=== PATIENT | female | born 1945 | race African-American/Black ===

== ENCOUNTER 2017-04-10 03:51 | Emergency (ER) | payer MEDICARE, OTHER ==
--- NOTE | ~2017-04-10 | CT4 ---
[facility] A Service of [facility] RADIOLOGY TEXT RESULTS PATIENT: MYRA AMIN LOCATION: [facility] : 49 UNIT #: [id number] AGE: [address]: Aliya Bueno MD SEX: F ORDER DR: [id number] [place], [place] [address] [id number] MR#: [id number] Acc #: [id number] NAME: MYRA AMIN : 1945 SEX: F STUDY DATE/TIME: 04/10/2017 4:33 UNIT: DIANDRA ROOM: STUDY DESCRIPTION: CT Abd and Pelv Wo Cont Attending Physician: Aliya Bueno M.D. Ordering Physician: Aliya Bueno M.D. Primary Care Physician: No Primary Care Physician MEDICAL IMAGING REPORT This report is preliminary unless electronic signature is present EXAM CT abdomen and pelvis without contrast INDICATION Lower abdominal pain for the past [address] of the abdomen and pelvis. This CT exam was performed with one or more of the following radiation dose reduction techniques: Automatic exposure control, adjustment of mA and/or kV according to patient size, and iterative reconstruction. COMPARISON None. FINDINGS ABDOMEN WITHOUT CONTRAST: Atelectasis or scarring in the lung bases. Coronary artery calcification. Liver, adrenal glands, pancreas, gallbladder show no acute abnormality. The bowel loops are nondilated. Appendix is normal bilateral renal cysts largest from the right kidney measures 11 cm. PELVIS WITHOUT CONTRAST: Probable fibroid exophytic from the uterus. No aggressive-appearing bone lesion. IMPRESSION 1. No definite acute findings. 2. Renal cysts. 3. A 6.6 cm pelvic mass probably represents an exophytic uterine fibroid could be further characterized with nonemergent pelvic ultrasound. [facility] A Service of [facility] RADIOLOGY TEXT RESULTS PATIENT: MYRA AMIN LOCATION: [facility] : 49 UNIT #: [id number] AGE: [address]: Aliya Bueno MD SEX: F ORDER DR: Dictated by... Christopher Villela M.D. THIS IS AN ELECTRONICALLY VERIFIED REPORT Christopher Villela M.D. at 04/15/2017 3:01 PM PURVI/inge TD: 04/10/2017 13:27 JOB #: [id number] MEDICAL IMAGING REPORT Page 1 of 1 COPY
[2017-04-10] MEDS ORDERED: SYNTHROID PO (04:02)
[2017-04-10] MEDS ORDERED: LASIX20 MG PO (04:02)
[2017-04-10] MEDS ORDERED: PRILOSEC PO (04:02)
[2017-04-10] MEDS ORDERED: MULTI-VITAMIN1 EAC1 PO (04:03)
[2017-04-10] MEDS ORDERED: PACERONE PO (04:03)
[2017-04-10] MEDS ORDERED: ORENCIA125 MG/1 M SUBQ (04:03)
[2017-04-10] MEDS ORDERED: POTASSIUM CHLO20 ME1 PO (04:03)
[2017-04-10] MEDS ORDERED: FERROUS SULFAT325 MG PO (04:04)
[2017-04-10] MEDS ORDERED: COREG12.5 MG PO (04:04)
[2017-04-10] MEDS ORDERED: OXYCONTIN60 MG PO (04:04)
[2017-04-10] MEDS ORDERED: VITAMIN D2000 UNIT PO (04:04)
[2017-04-10] MEDS ORDERED: CITRACAL200 MG PO (04:05)
[2017-04-10] MEDS ORDERED: ZOCOR20 MG PO (04:05)
[2017-04-10] MEDS ORDERED: TYLENOL #3 PO (04:06)
[2017-04-10] MEDS ORDERED: MELATONIN1 MG PO (04:06)
[2017-04-10] MEDS ORDERED: MILK OF MAGNESIA PO (04:07)
[2017-04-10] MEDS ORDERED: VOLTAREN100 GM TOP (04:07)
[2017-04-10] MEDS ORDERED: ZOFRAN PO (04:07)
[2017-04-10] MEDS ORDERED: IPRAT-ALBUT 0.5-3 ML INH (04:08)
[2017-04-10] MEDS ORDERED: LANTUS100 U/ML SUBQ (04:08)
[2017-04-10 04:30] LABS: BASOPHIL# 0.1 X10e3 (0-0.3); BASOPHIL% 0.6 % (0-2.5); EOSINOPHIL# 0.3 X10e3 (0-0.7); EOSINOPHIL% 2.8 % (0.0-7.0); HEMATOCRIT 39.7 % (35.0-45.0); HEMOGLOBIN 12.5 gm/dL (12.0-16.0); LYMPHOCYTE% 19.9 % (17.0-45.0); MEAN CORPUSCULAR HEMOGLOBIN 28.9 PG (28-34); MEAN CORPUSCULAR HGB CONC 31.4 g/dL (30-36); MEAN PLATELET VOLUME 8.7 FL (6.5-11.5); MONOCYTE# 0.8 X10e3 (0-1.0); NEUTROPHIL# 6.8 X10e3 (1.5-7.1); NEUTROPHIL% 68.7 % (40-75); PLATELET COUNT 215 X10e3 (140-420); RED BLOOD COUNT 4.32 X10e (3.90-5.30); RED CELL DISTRIBUTION WIDTH 13.5 % (11.0-15.5); WHITE BLOOD COUNT 9.8 X10e3 (4.0-10.5)
[2017-04-10 04:31] LABS: DIFF IND NO
[2017-04-10 04:43] LABS: PARTIAL THROMBOPLASTIN TIME 25.7 SECONDS (23.5-31.3); PROTHROMBIN TIME (PATIENT) 10.7 SECONDS (10.0-11.7)
[2017-04-10 04:57] LABS: ALBUMIN SERUM 3.4 g/dL (3.5-5.0); BILIRUBIN, DIRECT 0.1 mg/dL (0.0-0.2); BILIRUBIN,INDIRECT 0.4 mg/dL (0.0-0.9); BILIRUBIN,TOTAL 0.5 mg/dL (0.2-2.0); BUN/CREATININE RATIO 13.84; CALCIUM SERUM 8.8 mg/dL (8.4-10.2); CREATININE SERUM 1.3 mg/dL (0.6-1.4); GLOM FILT RATE Estimated 48.1 mL/min (>60); POTASSIUM 3.9 mmol/L (3.5-5.1); PROTEIN TOTAL SERUM 7.7 g/dL (6.0-8.3)
== END 2017-04-10 07:12 | disposition home or self-care (01) ==
LOC: CED 03:51
PROVIDERS: Student in an Organized Health Care Education/Training Program
DX: E11.65 Type 2 diabetes mellitus with hyperglycemia (principal); I10 Essential (primary) hypertension; Z91.040 Latex allergy status; Z88.0 Allergy status to penicillin; Z79.899 Other long term (current) drug therapy
CPT/HCPCS: 36415; 74176; 80048; 80076; 82150; 82550; 83605; 83690; 85025; 85610; 85730; 96374; 96375; 99284; C9113; J2405